=== PATIENT | female | born 1965 | race Caucasian/White ===

== ENCOUNTER 2023-10-26 22:53 | Emergency (ER) | payer BC, SELFPAY ==
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
[2023-10-26 23:05] VITALS: BP 149/77; PULSE 76; RESP 18; TEMP 36.6; O2SAT 16
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
[2023-10-26] MEDS: ACETAMINOPHEN 500 MG TABLET 1000 MG PO (23:20)
[2023-10-26] MEDS: ONDANSETRON HCL ODT 4 MG TABLET PO (23:21)
--- NOTE | 2023-10-26 23:25 | PC.NURSE ---
Patient refused to take cyclobenzaprine and stated she was too nervous that she could have a brain injury. Notified EDP Romelia.
[2023-10-26 23:59] VITALS: BP 130/70; PULSE 67; RESP 14; O2SAT 96
[2023-10-27 01:11] VITALS: BP 117/60; PULSE 61; RESP 16; O2SAT 100
== END 2023-10-27 01:13 | disposition home or self-care (01) ==
PROVIDERS: Emergency Provider Physician Assistant; PCP Internal Medicine
DX: S09.90XA Unspecified injury of head, initial encounter (principal); S16.1XXA Strain of muscle, fascia and tendon at neck level, initial encounter; W22.8XXA Striking against or struck by other objects, initial encounter
CPT/HCPCS: 70450; 72125; 99284; A9270